=== PATIENT | female | born 1940 | race Caucasian/White ===

== ENCOUNTER → 2017-10-13 | Outpatient (CLI) | payer OTHER, MEDICARE ==
[~2017-10-13] MED LIST: BUSP-8 PO; CALC-206 PO; CHOL100010 PO; EFFSR/75 PO; HYDR-5688 PO; KLN5X PO; LISI-725 PO; OXYC-57 PO; lorazepam PO
[2017-10-13 13:39] LABS: BASO % 1.1 %; BASO ABS # 0.05 K/uL (0-0.2); COMPLETE YES; EOS % 2.2 %; HEMATOCRIT 38.9 % (37-47); IG% 0.2 %; LYMPH % 27.7 %; LYMPH ABS # 1.28 K/uL (1.2-3.4); MEAN CELL VOLUME 88.8 fL (80-100); MEAN CORPUSCULAR HEMOGLOBIN 30.8 pg (25-34); MEAN CORPUSCULAR HGB CONC 34.7 g/dl (32-36); MEAN PLATELET VOLUME 9.4 fL (7.4-10.4); MONO % 7.6 %; NEUT % 61.2 %; PLATELET COUNT 354 K/uL (130-400); RED BLOOD COUNT 4.38 M/uL (4.2-5.4); WHITE BLOOD COUNT 4.62 K/uL (4.8-10.8)
[2017-10-13 13:55] LABS: ALT/SGPT 18 U/L (12-78); BLOOD UREA NITROGEN 8 mg/dl (7-18); CALCIUM 9.2 mg/dl (8.5-10.1); CARBON DIOXIDE 26 mmol/L (21-32); CHLORIDE 92 mmol/L (98-107); CHOLESTEROL 202 mg/dl (0-200); CREATININE 0.64 mg/dl (0.60-1.20); GLUCOSE 106 mg/dl (70-99); MAGNESIUM 2.1 mg/dl (1.8-2.4); POTASSIUM 4.3 mmol/L (3.5-5.1); SODIUM 124 mmol/L (136-145)
[2017-10-13 14:04] LABS: ALB/GLOB RATIO 1.3 (0.9-2); ALKALINE PHOSPHATASE 125 U/L (45-117); AST/SGOT 17 U/L (15-37); HDL CHOLESTEROL 103 mg/dl; LDL CHOLESTEROL CALCULATED 85 mg/dl; TRIGLYCERIDES 69 mg/dl (0-150); VERY LOW DENSITY LIPOPROT CALC 14 mg/dl
== END | disposition home or self-care (01) ==
LOC: C.LABPBG 11:46
PROVIDERS: ATTEND Internal Medicine
DX: M06.9 Rheumatoid arthritis, unspecified (principal); E87.1 Hypo-osmolality and hyponatremia; I10 Essential (primary) hypertension; F41.1 Generalized anxiety disorder; R53.83 Other fatigue; F32.9 Major depressive disorder, single episode, unspecified; E03.9 Hypothyroidism, unspecified

== ENCOUNTER 2023-04-26 15:21 | Observation (INO) ==
--- NOTE | 2023-04-26 15:37 | ED Triage Note ---
Date of Service April 26, 2023 History of Present Illness This patient was briefly evaluated while in triage. An abbreviated physical exam was performed. This patient is a 83-year-old Female who presents to the ED for evaluation of low sodium (128). Was referred by [facility]. Pt. has been fatigued, and she fell yesterday. Pt. had outpatient labs Tuesday, results available today. Pt. daughter reports she has been very tired recently. No other complaints or symptoms. Physical Exam VITALS: Vitals are noted on the nurse's note and reviewed by myself. GENERAL: This is an 83 year old female, in no acute distress, nondiaphoretic, well-developed well-nourished. SKIN: No obvious rashes, edema, erythema HEAD: Normocephalic atraumatic. EYES: Conjunctivae without injection, sclerae without icterus. NECK: No JVD. LUNGS: No retractions or accessory muscle use. MUSCULOSKELETAL: Normal gait. NEURO: Patient was alert and oriented to person place and time. No focal neurological deficits. Initial orders for labs and / or imaging were placed and patient was placed in the waiting area until a bed is available. Please see further documentation for the full ED course. MDM / Impression Impression Impression: Hyponatremia
[2023-04-26 16:36] LABS: Basophils # (auto) 0.03 K/uL (0-0.2); Basophils % (auto) 0.5 %; Eosinophils # (auto) 0.19 K/uL (0-0.50); Eosinophils % (auto) 3.3 %; Hematocrit (blood only) 35.6 % (37.0-47.0); Hemoglobin 12.3 g/dl (12.0-16.0); Immature Granulocytes # (auto) 0.01 K/uL (0.01-0.20); Immature Granulocytes % (auto) 0.2 %; Lymphocytes # (auto) 1.14 K/uL (1.2-3.4); Lymphocytes % (auto) 19.6 %; Mean Corpuscular Hemoglobin 29.9 pg (25.0-34.0); Mean Corpuscular Hgb Conc 34.6 g/dL (32.0-36.0); Mean Corpuscular Volume 86.4 fL (80.0-100.0); Mean Platelet Volume 9.5 fL (9.4-12.4); Monocytes # (auto) 0.53 K/uL (0.11-0.59); Monocytes % (auto) 9.1 %; Neutrophils # (auto) 3.91 K/uL (1.40-6.50); Neutrophils % (auto) 67.3 %; Platelet Count 283 K/uL (130-400); RDW Coefficient of Variation 13.4 % (11.5-14.5); RDW Standard Deviation 42.4 fL (36.4-46.3); Red Blood Count 4.12 M/uL (4.20-5.40); White Blood Count 5.81 K/ul (4.8-10.8)
[2023-04-26 16:51] LABS: Albumin Globulin Ratio 1.7 (0.9-2); Albumin Level 4.3 gm/dl (3.4-5.0); BUN Creatinine Ratio 21.5 (10-20); Bilirubin,Total 0.3 mg/dl (0.2-1.0); Calcium 9.3 mg/dl (8.6-10.3); Creatinine Clr Calc Pharmacy 66.5 ml/min; Est GFR (African American) 95.8 ml/min; Est GFR (Non-African American) 82.7 ml/min; Globulin 2.5 gm/dl (2.5-4.0); Magnesium 1.9 mg/dl (1.7-2.4); Potassium 4.5 mmol/L (3.5-5.1); Total Protein 6.8 gm/dl (6.0-8.3)
--- NOTE | 2023-04-26 16:53 | XRay Report ---
LEFT FEMUR 3 VIEWS CLINICAL HISTORY: Fall. FINDINGS: AP, frog-leg, and lateral views of the left femur are obtained. No prior studies are availa ble for comparison at the time of dictation. The skeletal structures are osteopenic. There is no radi ographic evidence of left femoral fracture. The visualized left hemipelvis appears intact. Mild degen erative change and joint space narrowing is seen in the left hip. There is degenerative sclerosis of the left sacroiliac joint. The left knee joint is grossly maintained. The overlying soft tissues are within normal limits. There is atherosclerotic calcification of the left femoral artery. IMPRESSION: There is no radiographic evidence of left femoral fracture. Electronically signed by: Kwabena Wright M.D. 04/26/2023 4:51 PM
--- NOTE | 2023-04-26 16:53 | XRay Report ---
XR chest 1V portable CLINICAL HISTORY: Fatigue TECHNIQUE: Single frontal radiograph of the chest was obtained. Comparison: Comparison is made to chest radiograph 08/13/2013 FINDINGS: No lines and tubes are seen. Calcified aortic knob is seen. The lungs are clear. No evidence of pleur al effusion or pneumothorax. IMPRESSION: No acute chest disease. ACT 112: Negative or not required by law. Electronically signed by: Cole Lundberg M.D. 04/26/2023 4:52 PM
[2023-04-26 16:57] LABS: Troponin I High Sensitivity 2.5 pg/ml (0-14)
[2023-04-26 16:58] LABS: Procalcitonin < 0.05 ng/ml (0-0.5)
[2023-04-26 17:02] LABS: INR 0.9 (0.9-1.1); Partial Thromboplastin Ratio 1.2; Partial Thromboplastin Time 32.6 Seconds (21.0-31.0); Prothrombin Time 10.3 Seconds (9.0-12.0)
--- NOTE | 2023-04-26 17:03 | XRay Report ---
XR pelvis 1-2V routine CLINICAL HISTORY: fall TECHNIQUE: A single frontal view of the pelvis was obtained. Comparison: Comparison is made to pelvis radiograph 03/26/2013 FINDINGS: Chronic appearing deformity of the right superior pubic ramus is new from prior exam. Degenerative ch anges are seen in the hip joints and lumbar spine. No soft tissue abnormality is seen. 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 Otherwise no acute fracture is seen. ACT 112: Negative or not required by law. Electronically signed by: Cole Lundberg M.D. 04/26/2023 5:01 PM
[2023-04-26 17:06] LABS: Lyme Ab IgG w/WB Rflx Negative (Negative); Lyme Ab IgM w/WB Rflx Negative (Negative)
--- NOTE | 2023-04-26 17:12 | CT Scan Report ---
CT SCAN OF THE BRAIN WITHOUT IV CONTRAST CLINICAL HISTORY: Fall. COMPARISON STUDY: CT of the brain dated 10/29/2016. TECHNIQUE: Unenhanced axial CT scan of the brain is performed from the vertex to the skull base. A do se lowering technique was utilized adhering to the principles of ALARA. CT DOSE: 625.80 mGy.cm FINDINGS: Brain parenchyma: There is age-related involutional change noting moderate confluent subcortical and periventricular microangiopathic disease. There is no hemorrhage, mass effect, or evidence of acute t erritorial ischemia by CT criteria. Graham-white matter differentiation is preserved. No extra-axial fl uid collection is seen. Ventricles, sulci, cisterns: Prominent secondary to involutional change. Intracranial vasculature: There is atherosclerotic calcification of the cavernous carotid arteries. Calvarium: The skeletal structures are osteopenic. No depressed calvarial fracture is identified. Sinuses and mastoids: The visualized paranasal sinuses are clear. The mastoid air cells are well pneu matized. Orbits: The bony orbits are grossly intact. There are bilateral ocular lens implants. IMPRESSION: There is no hemorrhage, mass effect, or evidence of acute territorial ischemia by CT ej bonds. ACT 112: Negative or not required by law. Electronically signed by: Kwabena Wright M.D. 04/26/2023 5:10 PM
[2023-04-26] MEDS: SODIUM CHLORIDE 0.9% 1000ML 1,000 ML IV SCH (17:35)
--- NOTE | 2023-04-26 17:47 | History & Physical Report ---
Date of Service April 26, 2023 Assessment & Plan (1) Hyponatremia: Plan: 81-year-old female with past medical history of hypertension, hypothyroidism, hyponatremia depression, hypertension who presents from assisted living in [place] for hyponatremia 128 (126 subsequently in the ED on 04/26) noted on outpatient labs on 04/22 for complaints of fatigue and lightheadedness. Chronic, ~asymptomatic. Per chart review from 2019, sodium ranged from 123-130 since 2015. 130 in 12/2022 and 12/2022. Per current reported history, does not endorse excessive fluid intake. Will check urine studies to help evaluate etiology. Currently providing NSS 80mL/hr, follow BMP. Recent repeat increase of sertraline from 100 mg at bedtime to 200 mg at bedtime a week ago noted. Will need to clarify upon med rec at discharge. Lyme Ab neg. (2) Fatigue: Plan: Acute on chronic. CBC, TSH stable, acceptable. Considered depression, polypharmacy, deconditioning. PT/OT evals, assess for placement. (3) Depression: Plan: And anxiety. Complex history. She has been on very high doses of anxiety depression medicines. Prior daughter, after the fall and hospitalization in December 2022, patient's medications were decreased. Per patient's daughter, the lorazepam 2 mg p.o. twice daily was decreased to 0.5 mg p.o. twice daily. The sertraline 200 mg at bedtime was decreased to 100 mg at bedtime. The sertraline was increased back to 100 mg 1 week ago because of depressed mood. -As a possible contributor to hyponatremia, attempt down titration of sertr luzma, will give 100 mg at bedtime while in the hospital -Per patient report, decreased from Wellbutrin XL 450mg qam to 300 qam since 2 months ago. Med rec updated. (4) Left groin pain: Plan: x1 month duration. No radicular symptoms. Considered myofascial pain, UTI (trace leuks noted on UA), osteoarthritis flare, degenerative disc disease, inguinal/femoral hernia. Per exam, severe pain with movements that aggravate the area. Reviewed xr femur and pelvis, no fracture on left. Atherosclerotic calcification of left femoral artery, but lower suspicion for claudication pain. Outpatient physical therapy without sustained relief. Benign abdominal exam. Consider performing hernia exam. (5) Hypothyroidism: Plan: History of, not on medications, TSH normal (6) Hypertension: Plan: Chronic, stable, continue home lisinopril 40 mg p.o. every morning Plan FEN/GI: Regular diet. NSS 80mL/hr dvt ppx: sq heparin 5000u q12 code: full dispo: med surg History of Present Illness Chief Complaint: hyponatremia Primary Care Provider: Michael Mg MD 81-year-old female with hypertension, hyponatremia, depression, and hypertension who presents from assisted living in [place] for hyponatremia 128 (126 subsequently in the ED on 04/26) noted on outpatient labs on 04/22 for complaints of fatigue and lightheadedness. Patient has had 3 weeks of severe fatigue. Per daughter, there may be some element of depression as her affect was quite flat since that time. Patient's sertraline was increased from 100 mg to 200 mg a week ago because of this. Patient is on the very large anxiety/depression regimen. Separately, patient has been having 1 month of left groin pain that is not worsened by walking. Physical therapy initially provided relief, but no longer is. She does have frequent falls. There is no radiation down the legs or paresthesias. Patient denies other symptoms such as dysuria, abdominal pain, diarrhea, cough, chest pain, shortness of breath, fever, chills, or headaches. She does not have history of blood clots. Patient's last major fall was in December 2022 during which she broke her right pelvis and [facility] to decrease her high doses of chronic medications, namely (per daughter) the 2 mg p.o. twice daily Ativan to 0.5 mg p.o. twice daily. Patient does have chronic ambulatory dysfunction and uses a walker at baseline with assistance. He does report lightheaded dizziness often. ED course: NSS 80mL/hr. cbc, coags reviewed. cxr, L femur xr, and pelvis xr w/o acute findings. 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 Allergies Allergy/AdvReac Type Severity Reaction Status Date / Time trazodone Allergy Intermediate Rash Verified 04/26/23 17:49 bupropion Allergy Unknown CAN'T Verified 04/26/23 17:49 REMEMBER hydrochlorothiazide Allergy Unknown CAN'T Verified 04/26/23 17:49 [From Dyazide] REMEMBER triamterene [From Dyazide] Allergy Unknown CAN'T Verified 04/26/23 17:49 REMEMBER atenolol AdvReac Unknown CAN'T Verified 04/26/23 17:49 REMEMBER Home Medications Medication Instructions Recorded Confirmed Type bupropion HCl 300 mg 24 hr tablet, 300 mg PO QAM 10/02/18 04/26/23 History extended release cholecalciferol (vitamin D3) 125 5,000 unit PO QAM 08/28/19 04/26/23 History mcg (5,000 unit) tablet acetaminophen 500 mg tablet 1,000 mg PO Q8H PRN Pain 04/26/23 04/26/23 History (Tylenol Extra Strength) aspirin 81 mg tablet,delayed 81 mg PO QAM 04/26/23 04/26/23 History release hydroxyzine HCl 10 mg tablet 10 mg PO HS 04/26/23 04/26/23 History lisinopril 40 mg tablet 40 mg PO QAM 04/26/23 04/26/23 History lorazepam 0.5 mg tablet 0.5 mg PO BID 04/26/23 04/26/23 History menthol 0.44 %-zinc oxide 20.6 % 1 applic topical DAILY PRN APPLY 04/26/2304/26 History topical ointment TO BUTTOCKS/IRRITATION zinc oxide 13 % topical cream 1 applic topical BID 04/26/23 04/26/23 History (Desitin Daily Defense) sertraline 100 mg tablet 100 mg PO HS #30 tabs 04/27/23 04/26/23 Rx Past Med/Surg History Medical History Anxiety Arthritis Depression History of endometriosis Hypertension Hyponatremia chronic. sodium level usually between 123-130. This was noted on preop eval from 2016 for wrist fracture. Hypothyroidism pt states resolved Osteoarthritis Rash Rosacea Surgical History History of adenoidectomy History of cataract surgery History of colonoscopy History of tonsillectomy History of total abdominal hysterectomy and bilateral salpingo-oophorectomy Tuesday - endometriosis Hx of LASIK Status post wrist surgery rt. 10/07/2016. LMA #4. (no block). no issues. Family History Father Myocardial infarction Other Cancer Heart disease Denies family history of Ovarian cancer Prostate cancer Breast cancer Colorectal cancer Social History Smoking Status: Never smoker Second Hand Exposure: No; Do You Dip or Chew Tobacco: No; Tobacco Cessation Education Requested by Patient: No Hx Alcohol Use: No Hx Substance Use: No Preferred Language: Burundian Communication Ability: Effective Visual Impairment: Limited Hearing Ability: Normal Tick Inspector Required: No Beliefs That Will Affect Care: None marital status: / Current Living Situation: Personal Care Facility Current Living Situation Comment: lives in a [facility] home current occupational status: retired How many Children do You have: 2 How many Children do You have Comment: 1 living- 1 Other Information That Helps Us Care for You: No Feels Safe at Home: Yes Safety Concerns: Feels Safe At This Time Childhood Exposure to Second-Hand Smoke: Yes caffeine: Yes during the past year weight has: remained stable Dental Care, Regularly: Yes Physical Activity Frequency: Does not Exercise Seatbelt Use: always Sunscreen Use: Yes Assistive Devices: Walker and Wheelchair Review of Systems Review of Systems: All systems reviewed & are unremarkable except as noted in HPI & below Physical Exam Physical Exam: General: Grossly A&O. NAD. Cooperative. HEENT: Atraumatic, normocephalic. EOMI. PERRL. Pulm: CTAB. -wheezes, -rales, -rhonchi. No respiratory distress. Cardiac: RRR, -mrg. No lower extremity edema. Abdominal: Nontender, nondistended, soft. Back: No gross tenderness palpation at lumbar spinal and paraspinal area. Exam somewhat limited by patient positioning. Musculoskeletal: Lifting of left lower extremity limited by groin pain. Unable to perform straight leg raise on left given pain in the groin. Same pain reproduced with attempted ANKITA. Negative FADIR. Results & Data Results & Data Vital Signs (Past 12 Hours) Vital Signs Pulse Resp BP Pulse Ox O2 Del Method 04/26/23 16:10 98 Room Air 04/26/23 16:06 67 04/26/23 15:37 69 18 137/65 96 Room Air Laboratory Results Cardiac Enzymes 04/26/23 Range/Units 16:05 AST 14 (13-39) U/L Troponin I High Sens 2.5 (0-14) pg/ml Coagulation 04/26/23 Range/Units 16:05 PT 10.3 (9.0-12.0) Seconds APTT 32.6 H (21.0-31.0) Seconds CBC 04/26/23 Range/Units 16:05 WBC 5.81 (4.8-10.8) K/ul RBC 4.12 L (4.20-5.40) M/uL Hgb 12.3 (12.0-16.0) g/dl Hct 35.6 L (37.0-47.0) % Plt Count 283 (130-400) K/uL Neut # (Auto) 3.91 (1.40-6.50) K/uL Lymph # (Auto) 1.14 L (1.2-3.4) K/uL [place] # (Auto) 0.53 (0.11-0.59) K/uL Eos # (Auto) 0.19 (0-0.50) K/uL Baso # (Auto) 0.03 (0-0.2) K/uL Comprehensive Metabolic Panel 04/26/23 Range/Units 16:05 Sodium 126 L (136-145) mmol/L Potassium 4.5 (3.5-5.1) mmol/L Chloride 95 L (98-107) mmol/L Carbon Dioxide 24 (21-32) mmol/L BUN 14 (6-23) mg/dl Creatinine 0.65 (0.6-1.2) mg/dl Glucose 84 (70-99(Fasting)) mg/dl Calcium 9.3 (8.6-10.3) mg/dl AST 14 (13-39) U/L ALT 10 (7-52) U/L Alkaline Phosphatase 94 (34-104) U/L Total Protein 6.8 (6.0-8.3) gm/dl Albumin 4.3 (3.4-5.0) gm/dl Intake and Output 04/26/23 04/26/23 04/26/23 06:59 14:59 22:59 Other: Weight 72.3 kg Weight Measurement Method Built in [facility] Patient Weight 04/27/23 06:59 Weight 72.3 kg Diagnostic Findings Chest X-Ray 04/26/23 15:43 XR chest 1V portable CLINICAL HISTORY: Fatigue TECHNIQUE: Single frontal radiograph of the chest was obtained. Comparison: Comparison is made to chest radiograph 08/13/2013 FINDINGS: No lines and tubes are seen. Calcified aortic knob is seen. The lungs are clear. No evidence of pleural effusion or pneumothorax. IMPRESSION: No acute chest disease. ACT 112: Negative or not required by law. Electronically signed by: Cole Lundberg M.D. 04/26/2023 4:52 PM Femur X-Ray 04/26/23 16:13 LEFT FEMUR 3 VIEWS CLINICAL HISTORY: Fall. FINDINGS: AP, frog-leg, and lateral views of the left femur are obtained. No prior studies are available for comparison at the time of dictation. The skeletal structures are osteopenic. There is no radiographic evidence of left femoral fracture. The visualized left hemipelvis appears intact. Mild degenerative change and joint space narrowing is seen in the left hip. There is degenerative sclerosis of the left sacroiliac joint. The left knee joint is grossly maintained. The overlying soft tissues are within normal limits. There is atherosclerotic calcification of the left femoral artery. IMPRESSION: There is no radiographic evidence of left femoral fracture. Electronically signed by: Kwabena Wright M.D. 04/26/2023 4:[address] 04/26/23 16:13 CT SCAN OF THE BRAIN WITHOUT IV CONTRAST CLINICAL HISTORY: Fall. COMPARISON STUDY: CT of the brain dated 10/29/2016. TECHNIQUE: Unenhanced axial CT scan of the brain is performed from the vertex to the skull base. A dose lowering technique was utilized adhering to the principles of ALARA. CT DOSE: 625.80 mGy.cm FINDINGS: Brain parenchyma: There is age-related involutional change noting moderate confluent subcortical and periventricular microangiopathic disease. There is no hemorrhage, mass effect, or evidence of acute territorial ischemia by CT criteria. Graham-white matter differentiation is preserved. No extra-axial fluid collection is seen. Ventricles, sulci, cisterns: Prominent secondary to involutional change. Intracranial vasculature: There is atherosclerotic calcification of the cavernous carotid arteries. Calvarium: The skeletal structures are osteopenic. No depressed calvarial fracture is identified. Sinuses and mastoids: The visualized paranasal sinuses are clear. The mastoid air cells are well pneumatized. Orbits: The bony orbits are grossly intact. There are bilateral ocular lens implants. IMPRESSION: There is no hemorrhage, mass effect, or evidence of acute territorial ischemia by CT criteria. ACT 112: Negative or not required by law. Electronically signed by: Kwabena Wright M.D. 04/26/2023 5:10 PM Pelvis X-Ray 04/26/23 16:14 XR pelvis 1-2V routine CLINICAL HISTORY: fall TECHNIQUE: A single frontal view of the pelvis was obtained. Comparison: Comparison is made to pelvis radiograph 03/26/2013 FINDINGS: Chronic appearing deformity of the right superior pubic ramus is new from prior exam. Degenerative changes are seen in the hip joints and lumbar spine. No soft tissue abnormality is seen. 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 Otherwise no acute fracture is seen. ACT 112: Negative or not required by law. Electronically signed by: Cole Lundberg M.D. 04/26/2023 5:01 PM ECG Additional Comments: ECG interpreted by me: NSR 68. Old right bundle branch block. Normal axis and intervals. Compared with 09/2018 ECG. Code Status & VTE Plan Code Status full VTE Prophylaxis Plan VTE Prophylaxis will be ordered: Yes Supervising Physician Co-Signing Physician Notes Patient seen and examined, chart reviewed, case discussed with Dr. Zapien and I agree with the assessment and plan as above except as otherwise noted Labs and images reviewed 83yo F referred from care facility for weakness and sodium 128 downtrending to 126. Had a fall with L hip pain yesterday, no acute fxr on xr. Recommended for admission for hyponatremia. CT of the head does not show any bleed or acute findings. Sodium studies are pending, patient did receive maintenance IV FM for clinical volume depletion. DDx includes SIADH which may be precipitated by her high-dose SSRI. If BMP downtrends on IV FM, discontinue, fluid restrict to 1300 cc, and add salt tablets. If needed can pursue down titration of SSRI in stages, do not hold altogether due to risk of withdrawal symptoms. Did discussed with psych, okay to decrease to 100 mg and could further decrease in another 2-3 days if needed sodium often will stabilize just with a dose decrease. Patient does have a history of hyponatremia and could also have reset osmostat, and while it is not unreasonable to continue her SSRI given her symptomatic benefit and recent increase back to 200 mg , if urine studies are consistent with SAIDH retarget SSRI downtritration Resident Activity Tracking Resident Involvement: Resident Care Provided Care Provided: Adult [facility]
--- NOTE | 2023-04-26 17:50 | Emergency Department Note ---
History of Present Illness General Chief complaint: Abnormal Labs/Diagnostic Testing Stated complaint: LOW SODIUM LEVELS Time Seen by Provider: 04/26/23 15:53 Source: patient and family (Daughter at bedside) History of Present Illness Provider complaint: Weakness abnormal labs 83-year-old female presents emergency department for weakness and abnormal labs from her personal care facility. Daughter reports that she has been increasingly weak over the last week. She reports she fell yesterday. Patient states she did not hit her head. Daughter reports that the personal care facility did blood work and this showed that her sodium levels low. Daughter does report that the patient has a chronically low sodium. Home Medications Medication Instructions Recorded Confirmed Type bupropion HCl 300 mg 24 hr tablet, 300 mg PO QAM 10/02/18 10/27/22 History extended release lorazepam 1 mg tablet 1 mg PO BID 10/02/18 10/27/22 History cholecalciferol (vitamin D3) 125 PO .Take 1 tablet daily 08/28/19 10/27/22 History mcg (5,000 unit) tablet Wheeled Walker See Rx Instructions .Route 04/20/21 10/27/22 Rx .COMPLEX #1 ea lisinopril 10 mg tablet 20 mg PO DAILY #180 tabs 03/25/22 10/27/22 Rx bupropion HCl 150 mg 24 hr tablet, 150 mg PO QAM #30 tabs 10/27/22 10/27/22 Rx extended release hydroxyzine HCl 10 mg tablet 10 mg PO HS PRN NEEDED FOR 10/27/22 10/27/22 Rx SLEEP #30 tabs sertraline 100 mg tablet 200 mg PO DAILY 10/27/22 10/27/22 History Allergies Allergy/AdvReac Type Severity Reaction Status Date / Time trazodone Allergy Intermediate Rash Verified 04/26/23 17:49 bupropion Allergy Unknown CAN'T Verified 04/26/23 17:49 REMEMBER hydrochlorothiazide Allergy Unknown CAN'T Verified 04/26/23 17:49 [From Dyazide] REMEMBER triamterene [From Dyazide] Allergy Unknown CAN'T Verified 04/26/23 17:49 REMEMBER atenolol AdvReac Unknown CAN'T Verified 04/26/23 17:49 REMEMBER Past Med/Surg History Medical History Anxiety Arthritis Depression History of endometriosis Hypertension Hyponatremia chronic. sodium level usually between 123-130. This was noted on preop eval from 2016 for wrist fracture. Hypothyroidism pt states resolved Osteoarthritis Rash Rosacea Surgical History History of adenoidectomy History of cataract surgery History of colonoscopy History of tonsillectomy History of total abdominal hysterectomy and bilateral salpingo-oophorectomy Tuesday - endometriosis Hx of LASIK Status post wrist surgery rt. 10/07/2016. LMA #4. (no block). no issues. Family History Father Myocardial infarction Other Cancer Heart disease Denies family history of Ovarian cancer Prostate cancer Breast cancer Colorectal cancer Social History Smoking Status: Never smoker Second Hand Exposure: No; Do You Dip or Chew Tobacco: No; Hx Alcohol Use: No Hx Substance Use: No Preferred Language: Turkish Communication Ability: Effective Visual Impairment: Limited Hearing Ability: Normal Customer Service Administrator Required: No Beliefs That Will Affect Care: None marital status: / Current Living Situation Comment: lives in a alf home current occupational status: retired How many Children do You have: 2 How many Children do You have Comment: 1 living- 1 Feels Safe at Home: Yes Childhood Exposure to Second-Hand Smoke: Yes caffeine: Yes during the past year weight has: remained stable Dental Care, Regularly: Yes Physical Activity Frequency: Does not Exercise Seatbelt Use: always Sunscreen Use: Yes Assistive Devices: Walker Physical Exam Vital Signs Vital Signs - 24 hr 04/26/23 15:37 04/26/23 16:06 04/26/23 16:10 Pulse Rate 69 67 Pulse Rate [Radial] Pulse Rhythm Regular Pulse Strength Normal Respiratory Rate 18 Respiratory Effort / Characteristics Non-Labored Respiratory Depth Normal Respiratory Pattern Regular Blood Pressure 137/65 Blood Pressure Mean 89 Blood Pressure Position Sitting Pulse Oximetry 96 98 Oxygen Delivery Method Room Air Room Air Sepsis New/Unexplained Change in Mental Status No Sepsis Action Taken by Nursing No Action Required 04/26/23 17:41 Pulse Rate Pulse Rate [Radial] 73 Pulse Rhythm Pulse Strength Respiratory Rate 16 Respiratory Effort / Characteristics Non-Labored Spontaneous Respiratory Depth Normal Respiratory Pattern Regular Blood Pressure Blood Pressure Mean Blood Pressure Position Pulse Oximetry 98 Oxygen Delivery Method Room Air Sepsis New/Unexplained Change in Mental Status Sepsis Action Taken by Nursing Physical Exam HENT: Exam performed. EYES: Conjunctivae and EOM are normal. Pupils are equal, round, and reactive to light. Right eye exhibits no discharge. Left eye exhibits no discharge. No scleral icterus. NECK: Normal range of motion. Neck supple. No JVD present. No spinous process tenderness present.No tracheal deviation and normal range of motion present. CV: Normal rate, regular rhythm, normal heart sounds and intact distal pulses. There is no peripheral edema. Palpable radial pulses bue. PULM/CHEST: Effort normal and breath sounds normal. No respiratory distress. No stridor. She has no wheezes. She has no rales. ABD: The abdomen is soft.There is no tenderness. There is no rebound, no guarding. MUSC/SKEL: Pelvis stable. Pain on palpation of the left hip. NEURO: Motor and sensation grossly intact. SKIN: Skin is warm and dry. She is not diaphoretic. Course Course 1553: The patient was evaluated in room B6. A complete history and physical exam was performed Cardiac monitoring: An order was placed for continuous cardiac monitoring. The monitor shows a rate of 70 with sinus rhythm interpreted by co 1748: Vital signs stable. Patient's sodium is lower than the outpatient labs down to 126. Imaging shows no acute traumatic injury other than an old pubic ramus fracture. [facility] The patient has had no seizure-like activity. No need for hypertonic saline. Gentle hydration with normal saline ordered for the patient. [facility]eg[facility] has been notified. Administered Medications Sodium Chloride (Nss 1000ml) 1,000 mls @ 80 mls/hr IV .[id number] XAVIER Stop: 05/26/23 17:29 Last Admin: 04/26/23 17:35 Dose: 80 mls/hr Documented By: [facility] Medical Decision Making Medical Records Attestation: I reviewed the patient's medical records. External medical records reviewed that were sent with the patient from her personal care facility and the patient had blood work which showed a sodium of 128. Patient's baseline sodium appears to be 130 per the [employer] EMR Laboratory Data Attestation: I reviewed the patient's lab results. 04/26/23 16:05 04/26/23 16:05 Lab Results 04/26/23 04/26/23 04/26/23 Range/Units 16:05 16:05 16:05 WBC 5.81 (4.8-10.8) K/ul RBC 4.12 L (4.20-5.40) M/uL Hgb 12.3 (12.0-16.0) g/dl Hct 35.6 L (37.0-47.0) % MCV 86.4 (80.0-100.0) fL MCH 29.9 (25.0-34.0) pg MCHC 34.6 (32.0-36.0) g/dL RDW Std Deviation 42.4 (36.4-46.3) fL RDW Coeff of Bhargavi 13.4 (11.5-14.5) % Plt Count 283 (130-400) K/uL MPV 9.5 (9.4-12.4) fL Immature Gran % (Auto) 0.2 % Neut % (Auto) 67.3 % Lymph % (Auto) 19.6 % Pierce % (Auto) 9.1 % Eos % (Auto) 3.3 % Baso % (Auto) 0.5 % Neut # (Auto) 3.91 (1.40-6.50) K/uL Lymph # (Auto) 1.14 L (1.2-3.4) K/uL Pierce # (Auto) 0.53 (0.11-0.59) K/uL Eos # (Auto) 0.19 (0-0.50) K/uL Baso # (Auto) 0.03 (0-0.2) K/uL Immature Gran # (Auto) 0.01 (0.01-0.20) K/uL PT 10.3 (9.0-12.0) Seconds INR 0.9 (0.9-1.1) APTT 32.6 H (21.0-31.0) Seconds PTT Ratio 1.2 Sodium 126 L (136-145) mmol/L Potassium 4.5 (3.5-5.1) mmol/L Chloride 95 L (98-107) mmol/L Carbon Dioxide 24 (21-32) mmol/L Anion Gap 7 (3-11) BUN 14 (6-23) mg/dl Creatinine 0.65 (0.6-1.2) mg/dl Est Cr Clr Drug Dosing 66.5 ml/min Est GFR ( Amer) 95.8 ml/min Est GFR (Non-Af Amer) 82.7 ml/min BUN/Creatinine Ratio 21.5 H (10-20) Glucose 84 (70-99(Fasting)) mg/dl Calcium 9.3 (8.6-10.3) mg/dl Magnesium 1.9 (1.7-2.4) mg/dl Total Bilirubin 0.3 (0.2-1.0) mg/dl AST 14 (13-39) U/L ALT 10 (7-52) U/L Alkaline Phosphatase 94 (34-104) U/L Troponin I High Sens 2.5 (0-14) pg/ml Total Protein 6.8 (6.0-8.3) gm/dl Albumin 4.3 (3.4-5.0) gm/dl Globulin 2.5 (2.5-4.0) gm/dl Albumin/Globulin Ratio 1.7 (0.9-2) Procalcitonin (0-0.5) ng/ml Lyme Disease IgG Ab (Negative) Lyme Disease IgM Ab (Negative) 04/26/23 Range/Units 16:05 WBC (4.8-10.8) K/ul RBC (4.20-5.40) M/uL Hgb (12.0-16.0) g/dl Hct (37.0-47.0) % MCV (80.0-100.0) fL MCH (25.0-34.0) pg MCHC (32.0-36.0) g/dL RDW Std Deviation (36.4-46.3) fL RDW Coeff of Bhargavi (11.5-14.5) % Plt Count (130-400) K/uL MPV (9.4-12.4) fL Immature Gran % (Auto) % Neut % (Auto) % Lymph % (Auto) % Pierce % (Auto) % Eos % (Auto) % Baso % (Auto) % Neut # (Auto) (1.40-6.50) K/uL Lymph # (Auto) (1.2-3.4) K/uL Pierce # (Auto) (0.11-0.59) K/uL Eos # (Auto) (0-0.50) K/uL Baso # (Auto) (0-0.2) K/uL Immature Gran # (Auto) (0.01-0.20) K/uL PT (9.0-12.0) Seconds INR (0.9-1.1) APTT (21.0-31.0) Seconds PTT Ratio Sodium (136-145) mmol/L Potassium (3.5-5.1) mmol/L Chloride (98-107) mmol/L Carbon Dioxide (21-32) mmol/L Anion Gap (3-11) BUN (6-23) mg/dl Creatinine (0.6-1.2) mg/dl Est Cr Clr Drug Dosing ml/min Est GFR ( Amer) ml/min Est GFR (Non-Af Amer) ml/min BUN/Creatinine Ratio (10-20) Glucose (70-99(Fasting)) mg/dl Calcium (8.6-10.3) mg/dl Magnesium (1.7-2.4) mg/dl Total Bilirubin (0.2-1.0) mg/dl AST (13-39) U/L ALT (7-52) U/L Alkaline Phosphatase (34-104) U/L Troponin I High Sens (0-14) pg/ml Total Protein (6.0-8.3) gm/dl Albumin (3.4-5.0) gm/dl Globulin (2.5-4.0) gm/dl Albumin/Globulin Ratio (0.9-2) Procalcitonin < 0.05 (0-0.5) ng/ml Lyme Disease IgG Ab Negative (Negative) Lyme Disease IgM Ab Negative (Negative) Imaging Data Attestation: I personally reviewed and interpreted this imaging study as follows: My Impression: Chest x-ray negative. Airway clear. No pneumothorax. No consolidation. No cardiomegaly or cephalization.. No free air under the diaphragm. No fractures of the skeletal structures. Radiologist's Impression: Chest X-Ray 04/26/23 15:43 XR chest 1V portable CLINICAL HISTORY: Fatigue TECHNIQUE: Single frontal radiograph of the chest was obtained. Comparison: Comparison is made to chest radiograph 08/13/2013 FINDINGS: No lines and tubes are seen. Calcified aortic knob is seen. The lungs are clear. No evidence of pleural effusion or pneumothorax. IMPRESSION: No acute chest disease. ACT 112: Negative or not required by law. Electronically signed by: Cole Lundberg M.D. 04/26/2023 4:52 PM Femur X-Ray 04/26/23 16:13 LEFT FEMUR 3 VIEWS CLINICAL HISTORY: Fall. FINDINGS: AP, frog-leg, and lateral views of the left femur are obtained. No prior studies are available for comparison at the time of dictation. The skeletal structures are osteopenic. There is no radiographic evidence of left femoral fracture. The visualized left hemipelvis appears intact. Mild degenerative change and joint space narrowing is seen in the left hip. There is degenerative sclerosis of the left sacroiliac joint. The left knee joint is grossly maintained. The overlying soft tissues are within normal limits. There is atherosclerotic calcification of the left femoral artery. IMPRESSION: There is no radiographic evidence of left femoral fracture. Electronically signed by: Kwabena Wright M.D. 04/26/2023 4:[address] 04/26/23 16:13 CT SCAN OF THE BRAIN WITHOUT IV CONTRAST CLINICAL HISTORY: Fall. COMPARISON STUDY: CT of the brain dated 10/29/2016. TECHNIQUE: Unenhanced axial CT scan of the brain is performed from the vertex to the skull base. A dose lowering technique was utilized adhering to the principles of ALARA. CT DOSE: 625.80 mGy.cm FINDINGS: Brain parenchyma: There is age-related involutional change noting moderate confluent subcortical and periventricular microangiopathic disease. There is no hemorrhage, mass effect, or evidence of acute territorial ischemia by CT criteria. Graham-white matter differentiation is preserved. No extra-axial fluid collection is seen. Ventricles, sulci, cisterns: Prominent secondary to involutional change. Intracranial vasculature: There is atherosclerotic calcification of the cavernous carotid arteries. Calvarium: The skeletal structures are osteopenic. No depressed calvarial fracture is identified. Sinuses and mastoids: The visualized paranasal sinuses are clear. The mastoid air cells are well pneumatized. Orbits: The bony orbits are grossly intact. There are bilateral ocular lens implants. IMPRESSION: There is no hemorrhage, mass effect, or evidence of acute territorial ischemia by CT criteria. ACT 112: Negative or not required by law. Electronically signed by: Kwabena Wright M.D. 04/26/2023 5:10 PM Pelvis X-Ray 04/26/23 16:14 XR pelvis 1-2V routine CLINICAL HISTORY: fall TECHNIQUE: A single frontal view of the pelvis was obtained. Comparison: Comparison is made to pelvis radiograph 03/26/2013 FINDINGS: Chronic appearing deformity of the right superior pubic ramus is new from prior exam. Degenerative changes are seen in the hip joints and lumbar spine. No soft tissue abnormality is seen. 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 Otherwise no acute fracture is seen. ACT 112: Negative or not required by law. Electronically signed by: Cole Lundberg M.D. 04/26/2023 5:01 PM ECG Data Attestation: I personally reviewed and interpreted this ECG as follows: Indication: + weakness Rate (beats per minute): 68 Rhythm: + normal sinus ECG Intervals/blocks: + Right Bundle branch block, + Normal TN and + Normal QT-c ECG ST segments: + Normal ST segments Additional Comments: QRS 132 MDM Narrative 1553: The patient was evaluated in room B6. A complete history and physical exam was performed Cardiac monitoring: An order was placed for continuous cardiac monitoring. The monitor shows a rate of 70 with sinus rhythm interpreted by me 1748: Vital signs stable. Patient's sodium is lower than the outpatient labs down to 126. Imaging shows no acute traumatic injury other than an old pubic ramus fracture. [facility] The patient has had no seizure-like activity. No need for hypertonic saline. Gentle hydration with normal saline ordered for the patient. [facility] Vanegas has been notified. Impression & Plan Hyponatremia Discharge Plan Visit Data Chief Complaint: Abnormal Labs/Diagnostic Testing Stated Complaint: LOW SODIUM LEVELS ED Provider: Benjamin Gibbons Discharge Problem: Hyponatremia Patient Disposition: Admitted As Inpatient Forms Stand Alone Forms: My [facility] Prescriptions Prescriptions: No Action Wheeled Walker Misc See Rx Instructions .ROUTE .COMPLEX Qty: 1 0RF Rx Instructions: ROLLATOR WALKER WITH BRAKES; DX: R26.89; LENGTH OF NEEDED: 99MONTHS bupropion HCl 150 mg tablet extended release 24 hr 150 mg PO QAM Qty: 30 2RF Rx Instructions: TAKES WITH THE 300MG TAB DAILY TO MAKE 450MG DAILY-CONFIRMED W/ PT AND ON PH DC SUMMARY 10/27 hydroxyzine HCl 10 mg tablet 10 mg PO HS PRN (Reason: NEEDED FOR SLEEP) Qty: 30 0RF Rx Instructions: CONFIRMED W/ PT AND ON PH DC SUMMARY 10/27 sertraline 100 mg tablet 200 mg PO DAILY Patient Comments: CONFIRMED W/ PATIENT THAT SHE IS TAKING 200MG DAILY lisinopril 10 mg tablet 20 mg PO DAILY Qty: 180 3RF cholecalciferol (vitamin D3) 5,000 unit tablet PO .Take 1 tablet daily lorazepam 1 mg Tablet 1 mg PO BID bupropion HCl 300 mg Tablet Extended Release 24 Hr 300 mg PO QAM Referrals Referrals: Michael Mg MD [Primary Care Provider] -
[2023-04-26 18:03] LABS: Appearance Urine Clear (Clear); Bacteria Urine Automated Negative (Negative); Bilirubin Urine Negative (Negative); Blood Urine Negative (Negative); Cast Urine Automated 0 /lpf (0-5); Color Urine Yellow; Epithelial Cell Urine Auto 0-5 /lpf (0-5); Glucose Urine UA Negative (Negative); Ketones Urine Negative (Negative); Leukocyte Esterase Urine Trace (Negative); Nitrite Urine Negative (Negative); Protein Urine Negative (Negative); RBC Urine Automated 0-4 /hpf (0-4); Specific Gravity Urine 1.011 (1.000-1.030); Urobilinogen Urine Negative (Negative)
[2023-04-26] MEDS: ACETAMINOPHEN 325 MG TAB PO PRN (20:29)
[2023-04-26] MEDS ORDERED: COUGH DROP (SUGAR FREE) LOZ 24 LOZ/1 BOX BUCCAL ONE (20:55)
[2023-04-26] MEDS: HEPARIN SOD 5,000 UNIT/0.5 ML VIAL SQ SCH (22:35)
[2023-04-26] MEDS: LORazepam 0.5 MG TAB PO SCH (22:38)
[2023-04-26] MEDS ORDERED: SERTRALINE HCL 100 MG TABLET PO SCH (23:00)
[2023-04-26] MEDS ORDERED: hydrOXYzine HCl 10 MG TAB PO SCH (23:00)
[2023-04-27 01:12] LABS: BUN Creatinine Ratio 18.8 (10-20); Calcium 8.9 mg/dl (8.6-10.3); Creatinine Clr Calc Pharmacy 67.5 ml/min; Est GFR (African American) 96.3 ml/min; Est GFR (Non-African American) 83.1 ml/min; Potassium 3.8 mmol/L (3.5-5.1)
[2023-04-27] MEDS: ACETAMINOPHEN 325 MG TAB PO PRN ×2 (01:50→13:05)
[2023-04-27] MEDS: LORazepam 0.5 MG TAB PO SCH (07:48)
[2023-04-27] MEDS: HEPARIN SOD 5,000 UNIT/0.5 ML VIAL SQ SCH (07:48)
--- NOTE | 2023-04-27 08:00 | Hospitalist Progress Note ---
Date of Service April 27, 2023 Assessment & Plan (1) Hyponatremia: Plan: 81-year-old female with past medical history of hypertension, hypothyroidism, hyponatremia depression, hypertension who presents from assisted living in [place] for hyponatremia 128 (126 subsequently in the ED on 04/26) noted on outpatient labs on 04/22 for complaints of fatigue and lightheadedness. Hyponatremia -Chronic, ~asymptomatic. Per chart review from 2019, sodium ranged from 123-130 since 2015. 130 in 12/2022 and 12/2022. Per current reported history, does not endorse excessive fluid intake. Will check urine studies to help evaluate etiology. -Currently providing NSS 80mL/hr, follow BMP. Recent repeat increase of sertraline from 100 mg at bedtime to 200 mg at bedtime a week ago noted. Will need to clarify upon med rec at discharge. Lyme Ab neg. Fatigue -Acute on chronic. CBC, TSH stable, acceptable. Considered depression, polypharmacy, deconditioning. PT/OT evals, assess for placement. Depression and anxiety -Complex history. She has been on very high doses of anxiety depression medicines. Prior daughter, after the fall and hospitalization in December 2022, patient's medications were decreased. Per patient's daughter, the lorazepam 2 mg p.o. twice daily was decreased to 0.5 mg p.o. twice daily. The sertraline 200 mg at bedtime was decreased to 100 mg at bedtime. The sertraline was increased back to 100 mg 1 week ago because of depressed mood. -As a possible contributor to hyponatremia, attempt down titration of sertraline, will give 100 mg at bedtime while in the hospital -Per patient report, decreased from Wellbutrin XL 450mg qam to 300 qam since 2 months ago. Med rec updated. Left groin pain -x1 month duration. No radicular symptoms. Considered myofascial pain, UTI (trace leuks noted on UA), osteoarthritis flare, degenerative disc disease, inguinal/femoral hernia. Per exam, severe pain with movements that aggravate the area. Reviewed xr femur and pelvis, no fracture on left. Atherosclerotic calcification of left femoral artery, but lower suspicion for claudication pain. Outpatient physical therapy without sustained relief. Benign abdominal exam. Consider performing hernia exam. Hypertension -Chronic, stable, continue home lisinopril 40 mg PO qam History of hypothyroidism -Not on medications, TSH normal FEN/GI: Regular diet. NSS 80mL/hr dvt ppx: sq heparin 5000u q12 code: full dispo: med surg (2) Fatigue: (3) Depression: (4) Left groin pain: (5) Hypothyroidism: (6) Hypertension: Admission and Anticipated Discharge Date Admission Date: April 26, 2023 Review of Systems Review of Systems: All systems reviewed & are unremarkable except as noted in HPI & below Physical Exam Physical Exam: General: Grossly A&O. NAD. Cooperative. HEENT: Atraumatic, normocephalic. Pulm: CTAB. -wheezes, -rales, -rhonchi. No accessory muscle use. Cardiac: RRR, -mrg. Abdominal: Nontender, nondistended, soft. Results & Data Results & Data Vital Signs (Past 12 Hours) Vital Signs Temp Pulse Pulse Resp BP Pulse Ox O2 Del Method 04/27/23 07:34 36.7 C 80 18 144/79 H 96 Room Air 04/27/23 01:59 86 131/76 04/26/23 21:11 36.8 C 74 16 181/82 H 97 Room Air Resident Activity Tracking Resident Involvement: Resident Care Provided Care Provided: Adult Hospital Medicine
[2023-04-27] MEDS ORDERED: lisinopril 40 MG TAB PO SCH (09:00)
[2023-04-27] MEDS ORDERED: buPROPion XL 300 MG TABCR PO SCH (09:00)
[2023-04-27] MEDS ORDERED: ASPIRIN 81 MG ECTAB PO SCH (09:00)
[2023-04-27 09:13] LABS: Hematocrit (blood only) 33.4 % (37.0-47.0); Hemoglobin 11.6 g/dl (12.0-16.0); Mean Corpuscular Hemoglobin 30.1 pg (25.0-34.0); Mean Corpuscular Hgb Conc 34.7 g/dL (32.0-36.0); Mean Corpuscular Volume 86.5 fL (80.0-100.0); Mean Platelet Volume 9.5 fL (9.4-12.4); Platelet Count 266 K/uL (130-400); RDW Coefficient of Variation 13.6 % (11.5-14.5); RDW Standard Deviation 43.2 fL (36.4-46.3); Red Blood Count 3.86 M/uL (4.20-5.40); White Blood Count 4.66 K/ul (4.8-10.8)
[2023-04-27 09:27] LABS: Albumin Globulin Ratio 1.8 (0.9-2); Albumin Level 3.9 gm/dl (3.4-5.0); BUN Creatinine Ratio 14.3 (10-20); Bilirubin,Total 0.4 mg/dl (0.2-1.0); Calcium 8.5 mg/dl (8.6-10.3); Creatinine Clr Calc Pharmacy 77.2 ml/min; Est GFR (African American) 100.6 ml/min; Est GFR (Non-African American) 86.8 ml/min; Globulin 2.2 gm/dl (2.5-4.0); Magnesium 1.7 mg/dl (1.7-2.4); Potassium 3.8 mmol/L (3.5-5.1); Total Protein 6.1 gm/dl (6.0-8.3)
--- NOTE | 2023-04-27 12:09 | Electrocardiogram Report ---
Test Reason : Blood Pressure : / mmHG Vent. Rate : 068 BPM Atrial Rate : 068 BPM P-R Int : 134 ms QRS Dur : 132 ms QT Int : 432 ms P-R-T Axes : 051 054 033 degrees QTc Int : 459 ms Normal sinus rhythm Right bundle branch block Abnormal ECG When compared with ECG of 02-OCT-2018 10:44, No significant change was found Confirmed by Vineet Sotomayor ([id number]) on 04/27/2023 12:08:59 PM Referred By: REFERRED SELF Confirmed By:Vineet Sotomayor
[2023-04-27] MEDS: SODIUM CHLORIDE 0.9% 1000ML 1,000 ML IV SCH (13:54)
--- NOTE | 2023-04-27 16:07 | Discharge Summary ---
Date of Service April 27, 2023 Admission HPI Per Admitting Provider 81-year-old female with hypertension, hyponatremia, depression, and hypertension who presents from assisted living in [place] for hyponatremia 128 (126 subsequently in the ED on 04/26) noted on outpatient labs on 04/22 for complaints of fatigue and lightheadedness. Patient has had 3 weeks of severe fatigue. Per daughter, there may be some element of depression as her affect was quite flat since that time. Patient's sertraline was increased from 100 mg to 200 mg a week ago because of this. Patient is on the very large anxiety/depression regimen. Separately, patient has been having 1 month of left groin pain that is not worsened by walking. Physical therapy initially provided relief, but no longer is. She does have frequent falls. There is no radiation down the legs or paresthesias. Patient denies other symptoms such as dysuria, abdominal pain, diarrhea, cough, chest pain, shortness of breath, fever, chills, or headaches. She does not have history of blood clots. Patient's last major fall was in December 2022 during which she broke her right pelvis and was submitted to [facility], then discharged to [facility]. At [facility], there is an effort to decrease her high doses of chronic medications, namely (per daughter) the 2 mg p.o. twice daily Ativan to 0.5 mg p.o. twice daily. Patient does have chronic ambulatory dysfunction and uses a walker at baseline with assistance. He does report lightheaded dizziness often. ED course: NSS 80mL/hr. cbc, coags reviewed. cxr, L femur xr, and pelvis xr w/o acute findings. 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 Admission Exam Per Admitting Provider General: Grossly A&O. NAD. Cooperative. HEENT: Atraumatic, normocephalic. EOMI. PERRL. Pulm: CTAB. -wheezes, -rales, -rhonchi. No respiratory distress. Cardiac: RRR, -mrg. No lower extremity edema. Abdominal: Nontender, nondistended, soft. Back: No gross tenderness palpation at lumbar spinal and paraspinal area. Exam somewhat limited by patient positioning. Musculoskeletal: Lifting of left lower extremity limited by groin pain. Unable to perform straight leg raise on left given pain in the groin. Same pain reproduced with attempted ANKITA. Negative FADIR. Principal Diagnosis hyponatremia Discharge Exam General: Grossly A&O. NAD. Cooperative. HEENT: Atraumatic, normocephalic. Pulm: CTAB. -wheezes, -rales, -rhonchi. No accessory muscle use. Cardiac: RRR, -mrg. No lower extremity swelling. Abdominal: Nontender, nondistended, soft. Discharge Data Allergies Allergy/AdvReac Type Severity Reaction Status Date / Time trazodone Allergy Intermediate Rash Verified 04/26/23 17:49 bupropion Allergy Unknown CAN'T Verified 04/26/23 17:49 REMEMBER hydrochlorothiazide Allergy Unknown CAN'T Verified 04/26/23 17:49 [From Dyazide] REMEMBER triamterene [From Dyazide] Allergy Unknown CAN'T Verified 04/26/23 17:49 REMEMBER atenolol AdvReac Unknown CAN'T Verified 04/26/23 17:49 REMEMBER Consultations 04/26/23 17:26 ED Decision to Admit Stat Ordered Studies Cardiac Enzymes 04/27/23 Range/Units 08:01 AST 12 L (13-39) U/L CBC 04/27/23 Range/Units 08:01 WBC 4.66 L (4.8-10.8) K/ul RBC 3.86 L (4.20-5.40) M/uL Hgb 11.6 L (12.0-16.0) g/dl Hct 33.4 L (37.0-47.0) % Plt Count 266 (130-400) K/uL Comprehensive Metabolic Panel 04/27/23 04/27/23 Range/Units 00:14 08:01 Sodium 127 L 131 L (136-145) mmol/L Potassium 3.8 3.8 (3.5-5.1) mmol/L Chloride 98 102 (98-107) mmol/L Carbon Dioxide 21 23 (21-32) mmol/L BUN 12 8 (6-23) mg/dl Creatinine 0.64 0.56 L (0.6-1.2) mg/dl Glucose 120 H 90 (70-99(Fasting)) mg/dl Calcium 8.9 8.5 L (8.6-10.3) mg/dl AST 12 L (13-39) U/L ALT 8 (7-52) U/L Alkaline Phosphatase 83 (34-104) U/L Total Protein 6.1 (6.0-8.3) gm/dl Albumin 3.9 (3.4-5.0) gm/dl Intake and Output 04/27/23 04/27/23 04/27/23 06:59 14:59 22:59 Intake Total 1000 / 1000 Balance 1000 / 1000 Intake: IV 1000 / 1000 Sodium Chloride 0.9% 1000ML 1, 1000 / 1000 000 ml @ 80 mls/hr IV .[id number] [facility] Rx#:[id number] Other: # Unmeasured Voids 1 Chest X-Ray 04/26/23 15:43 XR chest 1V portable CLINICAL HISTORY: Fatigue TECHNIQUE: Single frontal radiograph of the chest was obtained. Comparison: Comparison is made to chest radiograph 08/13/2013 FINDINGS: No lines and tubes are seen. Calcified aortic knob is seen. The lungs are clear. No evidence of pleural effusion or pneumothorax. IMPRESSION: No acute chest disease. ACT 112: Negative or not required by law. Electronically signed by: Cole Lundberg M.D. 04/26/2023 4:52 PM Femur X-Ray 04/26/23 16:13 LEFT FEMUR 3 VIEWS CLINICAL HISTORY: Fall. FINDINGS: AP, frog-leg, and lateral views of the left femur are obtained. No prior studies are available for comparison at the time of dictation. The skeletal structures are osteopenic. There is no radiographic evidence of left femoral fracture. The visualized left hemipelvis appears intact. Mild degenerat katie change and joint space narrowing is seen in the left hip. There is degenerative sclerosis of the left sacroiliac joint. The left knee joint is grossly maintained. The overlying soft tissues are within normal limits. There is atherosclerotic calcification of the left femoral artery. IMPRESSION: There is no radiographic evidence of left femoral fracture. Electronically signed by: Kwabena Wright M.D. 04/26/2023 4:[address] 04/26/23 16:13 CT SCAN OF THE BRAIN WITHOUT IV CONTRAST CLINICAL HISTORY: Fall. COMPARISON STUDY: CT of the brain dated 10/29/2016. TECHNIQUE: Unenhanced axial CT scan of the brain is performed from the vertex to the skull base. A dose lowering technique was utilized adhering to the principles of ALARA. CT DOSE: 625.80 mGy.cm FINDINGS: Brain parenchyma: There is age-related involutional change noting moderate confluent subcortical and periventricular microangiopathic disease. There is no hemorrhage, mass effect, or evidence of acute territorial ischemia by CT criteria. Graham-white matter differentiation is preserved. No extra-axial fluid collection is seen. Ventricles, sulci, cisterns: Prominent secondary to involutional change. Intracranial vasculature: There is atherosclerotic calcification of the cavernous carotid arteries. Calvarium: The skeletal structures are osteopenic. No depressed calvarial fracture is identified. Sinuses and mastoids: The visualized paranasal sinuses are clear. The mastoid air cells are well pneumatized. Orbits: The bony orbits are grossly intact. There are bilateral ocular lens implants. IMPRESSION: There is no hemorrhage, mass effect, or evidence of acute territorial ischemia by CT criteria. ACT 112: Negative or not required by law. Electronically signed by: Kwabena Wright M.D. 04/26/2023 5:10 PM Pelvis X-Ray 04/26/23 16:14 XR pelvis 1-2V routine CLINICAL HISTORY: fall TECHNIQUE: A single frontal view of the pelvis was obtained. Comparison: Comparison is made to pelvis radiograph 03/26/2013 FINDINGS: Chronic appearing deformity of the right superior pubic ramus is new from prior exam. Degenerative changes are seen in the hip joints and lumbar spine. No soft tissue abnormality is seen. 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 Otherwise no acute fracture is seen. ACT 112: Negative or not required by law. Electronically signed by: Cole Lundberg M.D. 04/26/2023 5:01 PM Hospital Course (1) Hyponatremia: 81-year-old female with past medical history of hypertension, hypothyroidism, hyponatremia depression, hypertension who presents from [facility] living in [place] for hyponatremia 128 (126 subsequently in the ED on 04/26) noted on outpatient labs on 04/22 for complaints of fatigue and lightheadedness. Hyponatremia, returned to baseline. 126 at admission. 131 at discharge after overnight of NSS 80mL/hr. -Chronic, ~asymptomatic. Per chart review from 2019, sodium ranged from 123-130 since 2015. 130 in 12/2022 and 12/2022. Per current reported history, does not endorse excessive fluid intake, so less likely polydipsia. Lyme Ab neg. -Per rise in Na after IV fluids, less likely SIADH. urine osm 316. -FENa 1.4%. Urine Na 82. -Recheck BMP in several days Fatigue -Acute on chronic. Possibly worsening from hyponatremia. Rest work up neg. Considered depression, polypharmacy, deconditioning. PT/OT evals. Return to assisted living. Depression and anxiety -Complex history. She has been on very high doses of anxiety depression medicines. Prior daughter, after the fall and hospitalization in December 2022, patient's medications were decreased. Per patient's daughter, the lorazepam 2 mg p.o. twice daily was decreased to 0.5 mg p.o. twice daily. The sertraline 200 mg at bedtime was decreased to 100 mg at bedtime. The sertraline was increased back to 100 mg 1 week ago because of depressed mood. Decrease to sertraline 100mg at bedtime because possible contributor to hyponatremia. -Per patient report, decreased from Wellbutrin XL 450mg qam to 300 qam since 2 months ago. Med rec updated. Left groin pain -x1 month duration. No radicular symptoms. Considered myofascial pain, UTI (trace leuks noted on UA), osteoarthritis flare, degenerative disc disease, inguinal/femoral hernia. Per exam, severe pain with movements that aggravate the area. Reviewed xr femur and pelvis, no fracture on left. Atherosclerotic calcification of left femoral artery, but lower suspicion for claudication pain. Outpatient physical therapy without sustained relief. Benign abdominal exam. Consider performing hernia exam. PCP to follow. Hypertension -Chronic, stable, continue home lisinopril 40 mg PO qam History of hypothyroidism -Not on medications, TSH normal Patient was full code this admission. (2) Fatigue: (3) Depression: (4) Left groin pain: (5) Hypothyroidism: (6) Hypertension: Total Time Total Time Spent Total Time Spent (In Minutes): <30 Discharge Plan Discharge Items Patient Disposition: Personal [facility] Living Reason For Visit: HYPONATREMIA, FATIGUE, AMBULATORY DYSFUNCTION Discharge Diagnosis: hyponatremia, ambulatory dysfunction Activity: Per Instructions section Non-emergency contact: Primary Care Provider Call non-emergency contact if: you have any medication questions, your symptoms worsen and you have a fever Follow-up/Referrals: Michael Mg MD [Primary Care Provider] - (hospital discharge follow up within 1 week) Diet: Regular Addtl Attending Provider Instructions: 81-year-old female with past medical history of hypertension, hypothyroidism, hyponatremia depression, hypertension who presents from assisted living in [place] for hyponatremia 128 (126 subsequently in the ED on 04/26) noted on outpatient labs on 04/22 for complaints of fatigue and lightheadedness. Hyponatremia, returned to baseline. 126 at admission. 131 at discharge after overnight of NSS 80mL/hr. -Chronic, ~asymptomatic. Per chart review from 2019, sodium ranged from 123-130 since 2015. 130 in 12/2022 and 12/2022. Per current reported history, does not endorse excessive fluid intake, so less likely polydipsia. Lyme Ab neg. -Per rise in Na after IV fluids, less likely SIADH. urine osm 316. -FENa 1.4%. Urine Na 82. -Recheck BMP in several days Fatigue -Acute on chronic. CBC, TSH stable, acceptable. Considered depression, polypharmacy, deconditioning. PT/OT evals. Return to assisted living. Depression and anxiety -Complex history. She has been on very high doses of anxiety depression medicines. Prior daughter, after the fall and hospitalization in December 2022, patient's medications were decreased. Per patient's daughter, the lorazepam 2 mg p.o. twice daily was decreased to 0.5 mg p.o. twice daily. The sertraline 200 mg at bedtime was decreased to 100 mg at bedtime. The sertraline was increased back to 100 mg 1 week ago because of depressed mood. Decrease to sertraline 100mg at bedtime because possible contributor to hyponatremia. -Per patient report, decreased from Wellbutrin XL 450mg qam to 300 qam since 2 months ago. Med rec updated. Left groin pain -x1 month duration. No radicular symptoms. Considered myofascial pain, UTI (trace leuks noted on UA), osteoarthritis flare, degenerative disc disease, inguinal/femoral hernia. Per exam, severe pain with movements that aggravate the area. Reviewed xr femur and pelvis, no fracture on left. Atherosclerotic calcification of left femoral artery, but lower suspicion for claudication pain. Outpatient physical therapy without sustained relief. Benign abdominal exam. Consider performing hernia exam. PCP to follow. Hypertension -Chronic, stable, continue home lisinopril 40 mg PO qam History of hypothyroidism -Not on medications, TSH normal Patient was full code this admission. Pending Studies at Discharge: No Stand-Alone Forms: My [employer], Smoking Cessation Skilled Items Patient informed of condition?: Yes DNR: No Discharge Level of Care: Other Communicable Disease: No Discharge Prognosis: Stable Lines: None Urinary Catheter: No Medications and DC Order Prescriptions: Continued cholecalciferol (vitamin D3) 5,000 unit tablet 5,000 unit PO QAM bupropion HCl 300 mg Tablet Extended Release 24 Hr 300 mg PO QAM aspirin 81 mg Tablet,Delayed Release (Dr/Ec) 81 mg PO QAM acetaminophen [Tylenol Extra Strength] 500 mg Tablet 1,000 mg PO Q8H PRN (Reason: Pain) lorazepam 0.5 mg tablet 0.5 mg PO BID lisinopril 40 mg tablet 40 mg PO QAM menthol-zinc oxide 0.44-20.6 % Ointment 1 applic TOPICAL DAILY PRN (Reason: APPLY TO BUTTOCKS/IRRITATION) Desitin Daily Defense 13 % Cream 1 applic TOPICAL BID Rx Instructions: AFFECTED AREA UNTIL HEALED AND PRN NEEDED. hydroxyzine HCl 10 mg tablet 10 mg PO HS Changed sertraline 100 mg tablet 100 mg PO HS Qty: 30 0RF Patient Comments: CONFIRMED W/ PATIENT THAT SHE IS TAKING 200MG DAILY Discharge Orders: Discharge Order (Routine); Ordered 04/27/23 Ordered By: Cash Zapien Admission Data Admit Date/Time: 04/26/23 19:17 Attending Provider: Tracie Fung Admit Provider: Cash Zapien Primary Care Provider: Michael Mg Other Providers: Owen [address] Supervising Physician Co-Signing Physician Notes Resident Physician Supervision Note: I independently interviewed and examined the patient and verified the bragg history and physical, reviewed labs and image studies and agree with resident findings and care plan. Resident Activity Tracking Resident Involvement: Resident Care Provided Care Provided: Adult Hospital Medicine
--- NOTE | 2023-04-27 17:51 | Communication Note ---
Date of Service: April 27, 2023 By CMS guidelines, a determination that the admission or continued stay is not medically necessary has been made by a member of the UR committee and a physi devang for this hospital stay, therefore a Code 44 will be completed and the Inpatient admission will be changed to outpatient.
== END 2023-04-27 18:48 | disposition home or self-care (01) | DRG 641 ==
LOC: ED 15:21 → 3N 19:17 → SUATTDRO 19:17 → INTOOBSV 19:17 → 3N 20:07
DX: R53.83 Other fatigue; Z79.899 Other long term (current) drug therapy; F32.A Depression, unspecified; E87.1 Hypo-osmolality and hyponatremia; Z91.81 History of falling; R10.32 Left lower quadrant pain; Z79.82 Long term (current) use of aspirin; Z88.8 Allergy status to other drugs, medicaments and biological substances; F41.9 Anxiety disorder, unspecified; I10 Essential (primary) hypertension; M25.552 Pain in left hip